=== PATIENT | female | born 1980 | race Two or more races ===

== ENCOUNTER 2017-11-15 00:10 | Emergency (ER) | payer MEDICAID ==
[~2017-11-15] VITALS: Ht 165.1 cm; Wt 93.0 kg
[~2017-11-15 00:10] MED LIST: BENADRYL25 MG ORAL; BENAZEPRIL HCL10 MG ORAL; BENAZEPRIL HCL20 MG ORAL; CIPROFLOXACIN500 M2 ORAL; GLIPIZIDE5 MG ORAL; HYDROCODON-ACE1 EA15 ORAL; IBUPROFEN600 MG PO; IMODIUM2 MG ORAL; METFORMIN HCL1000 M1 ORAL; METFORMIN HCL500 M1 ORAL; NORCO 10/3251 EA ORAL; NORCO 5-325 TA1 EACH ORAL; PRILOSEC20 MG ORAL; VALIUM5 MG PO
[2017-11-15] MEDS ORDERED: KEFLEX500 MG ORAL (00:44)
--- NOTE | 2017-11-15 00:44 | Emergency Room Report ---
History of Present Illness General Chief Complaint: Female Urogenital Problems Source: Patient Present Illness HPI This is a 37-year-old female with a history diabetes. She presents with chief complaint of dysuria, frequency and urgency. Had hematuria on and off. Now with lower back pain. No nausea vomiting. History of UTI in the past. No fever or chills. No nausea no vomiting. Allergies: Coded Allergies: ASPIRIN (Verified Allergy, Severe, ANAPHYLAXIS, 03/06/16) Uncoded Allergies: aspirin (Allergy, Mild, can't breathe, 05/17/13) Patient History Past Medical History: see triage record, old chart reviewed, DM Past Surgical History: other Pertinent Family History: none Social History: Denies: smoking Last Menstrual Period: 2 weeks ago Now: No : 3 Immunizations: other Reviewed Nursing Documentation: PMH: Agreed, PSxH: Agreed Nursing Documentation-PMH Hx Hypertension: Yes Hx Diabetes: Yes Hx Gastrointestinal Problems: Yes - Cholecystectomy Review of Systems Eye: Denies: eye pain, blurred vision ENT: Denies: ear pain, nose congestion, throat swelling Respiratory: Denies: cough, shortness of breath Cardiovascular: Denies: chest pain, palpitations Gastrointestinal: Denies: abdominal pain, diarrhea, nausea, vomiting Genitourinary: Reports: dysuria, frequency, hematuria, urgency Musculoskeletal: Denies: back pain, joint pain Skin: Denies: rash Neurological: Denies: headache, numbness Endocrine: Denies: increased thirst, increased urine Hematologic/Lymphatic: Denies: easy bruising All Other Systems: negative except mentioned in HPI Physical Exam Vital Signs Date Time Temp Pulse Resp B/P (MAP) Pulse Ox O2 Delivery O2 Flow Rate FiO2 11/15/17 00:13 98.4 100 18 129/79 98 vitals normal Sp02 EP Interpretation: reviewed, normal General Appearance: well appearing, no apparent distress, alert Head: normocephalic, atraumatic Eyes: bilateral eye PERRL, bilateral eye EOMI ENT: hearing grossly normal, normal pharynx Neck: full range of motion, supple, no meningismus Respiratory: chest non-tender, lungs clear, normal breath sounds Cardiovascular #1: regular rate, rhythm, no murmur Gastrointestinal: normal bowel sounds, non tender, no mass, no organomegaly, no bruit, non-distended Musculoskeletal: back normal, gait/station normal, normal range of motion Psychiatric: mood/affect normal Skin: warm/dry Medical Decision Making Diagnostic Impression: Primary Impression: UTI (urinary tract infection) Qualified Codes: N30.00 - Acute cystitis without hematuria ER Course Patient with symptoms consistent with UTI. No evidence of any sepsis or pyelonephritis. We'll discharge him. Last Vital Signs Date Time Temp Pulse Resp B/P (MAP) Pulse Ox O2 Delivery O2 Flow Rate FiO2 11/15/17 00:13 98.4 100 18 129/79 98 Status: improved Disposition: HOME, SELF-CARE Condition: Stable Scripts Cephalexin* (KEFLEX*) 500 Mg Capsule 500 MG ORAL TID, #21 CAP 0 Refills Prov: JAN CONTI M.D. 11/15/17 Patient Instructions: Urinary Tract Infection Additional Instructions: Followup with your DrAruna in 2-3 days. Return if symptom worsen. JAN CONTI M.D. Nov 15, 2017 00:44
[2017-11-15 00:45] VITALS: BP 129/79
[2017-11-15] MEDS ORDERED: Cephalexin 500mg cap ORAL ONE (00:45)
[2017-11-15 01:00] VITALS: BP 129/79
== END 2017-11-15 01:00 | disposition home or self-care (01) ==
LOC: EMR 00:28
DX: N39.0 Urinary tract infection, site not specified (principal); E11.9 Type 2 diabetes mellitus without complications; Z90.49 Acquired absence of other specified parts of digestive tract; Z88.6 Allergy status to analgesic agent
CPT/HCPCS: 87086; 87181; 99283

== ENCOUNTER 2018-02-11 22:26 | Emergency (ER) | payer MEDICAID ==
[~2018-02-11] VITALS: Ht 165.1 cm; Wt 90.7 kg
[~2018-02-11 22:26] MED LIST changes: +KEFLEX500 MG ORAL
[2018-02-11 22:35] VITALS: BP 142/88
[2018-02-11] MEDS ORDERED: DOXYCYCLINE MO100 MG ORAL (22:47)
[2018-02-11] MEDS ORDERED: BENADRYL25 MG ORAL (22:47)
--- NOTE | 2018-02-11 22:48 | Emergency Room Report ---
History of Present Illness General Chief Complaint: Skin Rash/Abscess Source: Patient Present Illness HPI Is a 37-year-old female with history diabetes. She presents with chief complaint of itching and rash to both hand. Now going up her arm to her face. Onset a couple days ago. Nothing out of the ordinary. Denies any fever chills. Denies any nausea vomiting. No sweating. No fever. Has not take any medicine for it. Allergies: Coded Allergies: ASPIRIN (Verified Allergy, Severe, ANAPHYLAXIS, 03/06/16) Uncoded Allergies: aspirin (Allergy, Mild, can't breathe, 05/17/13) Patient History Past Medical History: see triage record, old chart reviewed, DM Past Surgical History: other Pertinent Family History: none Last Menstrual Period: January Now: No Immunizations: other Reviewed Nursing Documentation: PMH: Agreed, PSxH: Agreed Nursing Documentation-PMH Hx Hypertension: Yes Hx Diabetes: Yes Hx Gastrointestinal Problems: Yes - Cholecystectomy Review of Systems Eye: Denies: eye pain, blurred vision ENT: Denies: ear pain, nose congestion, throat swelling Respiratory: Denies: cough, shortness of breath Cardiovascular: Denies: chest pain, palpitations Gastrointestinal: Denies: abdominal pain, diarrhea, nausea, vomiting Musculoskeletal: Denies: back pain, joint pain Skin: Reports: rash Neurological: Denies: headache, numbness Endocrine: Denies: increased thirst, increased urine Hematologic/Lymphatic: Denies: easy bruising All Other Systems: negative except mentioned in HPI Physical Exam Vital Signs Date Time Temp Pulse Resp B/P (MAP) Pulse Ox O2 Delivery O2 Flow Rate FiO2 02/11/18 22:28 98.0 76 18 149/89 98 Room Air 98.1 vitals with high blood pressure Sp02 EP Interpretation: reviewed, normal General Appearance: well appearing, no apparent distress, alert Head: normocephalic, atraumatic Eyes: bilateral eye PERRL, bilateral eye EOMI ENT: hearing grossly normal, normal pharynx Neck: full range of motion, supple, no meningismus Respiratory: chest non-tender, lungs clear, normal breath sounds Cardiovascular #1: regular rate, rhythm, no murmur Gastrointestinal: normal bowel sounds, non tender, no mass, no organomegaly, no bruit, non-distended Musculoskeletal: back normal, gait/station normal, normal range of motion Neurologic: alert, oriented x3 Psychiatric: mood/affect normal Skin: warm/dry, rash - Prickly rash on dorsum of both hands tracking up the forearm. Medical Decision Making Diagnostic Impression: Primary Impression: Rash and other nonspecific skin eruption ER Course Patient with a dermatitis. Could be allergic reaction versus cellulitis. We' ll go ahead and treat symptomatically and put on antibiotics. No evidence of necrotizing fasciitis, abscess or deep infection. Last Vital Signs Date Time Temp Pulse Resp B/P (MAP) Pulse Ox O2 Delivery O2 Flow Rate FiO2 02/11/18 22:28 98.0 76 18 149/89 98 Room Air 98.1 Status: unchanged Disposition: HOME, SELF-CARE Condition: Stable Scripts Doxycycline Monohydrate* (DOXYCYCLINE MONOHYDRATE*) 100 Mg Capsule 100 MG ORAL Q12H, #14 CAP 0 Refills Prov: JAN CONTI M.D. 02/11/18 Diphenhydramine Hcl* (BENADRYL*) 25 Mg Capsule 50 MG ORAL Q6H Y for Itching, #30 CAP Prov: JAN CONTI M.D. 02/11/18 Referrals: NON PHYSICIAN (PCP) Patient Instructions: Rash Additional Instructions: Follow-up with your DrAruna in 7 days. Return if symptom worsen. JAN CONTI M.D. Feb 11, 2018 22:47
[2018-02-11 22:56] VITALS: BP 142/88
== END 2018-02-11 22:56 | disposition home or self-care (01) ==
LOC: EMR 22:39
DX: R21 Rash and other nonspecific skin eruption (principal); E11.9 Type 2 diabetes mellitus without complications; I10 Essential (primary) hypertension; Z90.49 Acquired absence of other specified parts of digestive tract; Z88.6 Allergy status to analgesic agent
CPT/HCPCS: 99284

== ENCOUNTER 2018-07-19 18:02 | Emergency (ER) | payer MEDICAID ==
[~2018-07-19] VITALS: Ht 162.6 cm; Wt 93.0 kg
[~2018-07-19 18:02] MED LIST changes: +DOXYCYCLINE MO100 MG ORAL
[2018-07-19] MEDS ORDERED: Lidocaine 1% Plain 30 ml INJ ONE (18:30)
[2018-07-19] MEDS ORDERED: Bacitracin Oint UD TOPIC ONE (18:30)
--- NOTE | 2018-07-19 18:37 | Emergency Room Report ---
History of Present Illness General Chief Complaint: General Complaint Source: Patient Present Illness HPI 38-year-old female patient presents ER complaining of "I have an ingrown toenail ". Reports has been present for the past few weeks but pain became much more increased today. Reports left big toenail ingrown is ingrown. reports has had ingrown toenail procedure performed twice previously. Reports has been attempting to treat at home over the past few weeks. Reports history of similar symptoms in the past. States has not had for "a while".. Denies fever , chest, shortness of breath. Denies hx of injury or trauma. Reports hx of diabetes. Allergies: Coded Allergies: ASPIRIN (Verified Allergy, Severe, ANAPHYLAXIS, 03/06/16) Uncoded Allergies: aspirin (Allergy, Mild, can't breathe, 05/17/13) Patient History Past Medical History: see triage record Last Menstrual Period: 07/11/2018 Reviewed Nursing Documentation: PMH: Agreed; PSxH: Agreed Nursing Documentation-PMH Past Medical History: No History, Except For Hx Hypertension: Yes Hx Diabetes: Yes Hx Gastrointestinal Problems: Yes - Cholecystectomy Review of Systems All Other Systems: negative except mentioned in HPI Physical Exam Vital Signs Date Time Temp Pulse Resp B/P (MAP) Pulse Ox O2 Delivery O2 Flow Rate FiO2 07/19/18 18:24 98.3 85 14 138/85 97 Room Air 98.2 Sp02 EP Interpretation: reviewed, normal General Appearance: well appearing, no apparent distress, alert, GCS 15, non- toxic Head: normocephalic, atraumatic Eyes: bilateral eye normal inspection, bilateral eye PERRL ENT: hearing grossly normal, normal pharynx, no angioedema, normal voice, uvula midline, moist mucus membranes Neck: full range of motion Respiratory: lungs clear, normal breath sounds, no rhonchi, no respiratory distress, no accessory muscle use, no wheezing, speaking full sentences Cardiovascular #1: regular rate, rhythm, no edema Musculoskeletal: back normal, digits/nails normal, gait/station normal, normal range of motion, non-tender Neurologic: alert, oriented x3, responsive, motor strength/tone normal, sensory intact Psychiatric: mood/affect normal Skin: other - left big toe: medial border obvuious ingrown toenail, mild erythema, TTP Procedures Additional Procedure Procedure Narrative Ingrown toenail. Obtained verbal and written consent for procedure. Toenail and surrounding areas cleaned and prepped with Betadine solution and normal saline. Digital block performed using 5ml 1% lidocaine without epi. After achieving appropriate anesthesia, nail freed from nail bed with blunt dissection using hemostats and dissected section removed after cutting with scissors. Direct pressure used to achieve hemostasis. Toe was then flushed with copious amounts of saline, bacitracin, xeroform, gauze and tape were applied. Patient tolerated procedure well without complication WBAT with post-op shoe. Will discharge home wtih abx and pain medication. Medical Decision Making PA Attestation Dr. Hooper is my supervising Physician whom patient management has been discussed with. Diagnostic Impression: Primary Impression: Ingrown left big toenail ER Course Pt. presents to the ED c/o toe pain. Ddx considered but are not limited to ingrown toenail, nail avulsion, paronychia , felon, cellulitis, tinea magnum. Vital signs: are WNL, pt. is afebrile ER COURSE: Physical exam shows: ingrown toenail noted with superimposed infection of left big toenail. Left big toenail appears slightly misshapen, may be due to treatment at home or previous toenail procedures. Informed patient she needs podiatry follow-up. Provided with contact information. See procedure note for partial toe nail removal. Informed patient can wash it tomorrow, but do not soak in water. Apply topical abx and redress wound. Do not wear close toed shoes. Followup with stopper maker helper/PCP provided with contact information for stopper maker helper, contact to schedule appt. Wound check in 2-3 days. ER precautions given. provided with contact information for free and low-cost healthcare clinics if unable to be seen. DISCHARGE: Rx provided for Keflex Rx provided for Ciprofloxacin to cover for pseudomonas due to history of diabetes. Rx provided for bacitracin Rx provided for Tylenol #3, CURES reviewed. SE drowsiness, do not take prior to drinking, driving, operating heavy machinery. At this time pt is stable for d/c to home. Patient is resting comfortably, in no acute distress, nontoxic appearing, talking without difficulty. Patient to take medications as instructed Will provide with patient care instructions and any necessary prescriptions. Care plan and follow-up instructions provided. Patient instructed to follow-up with primary care provider in 3 - 5 days. Patient questions asked and answered. Patient reports understanding and agreement to treatment plan. ER precautions given. Patient instructed to return to ER immediately for any new or worsening of symptoms including but not limited to increasing SOB, persistent fever, chest pain, intractable vomiting. - Please note that this Emergency Department Report was dictated using [employer] window tinter technology software, occasionally this can lead to erroneous entry secondary to interpretation by the dictation equipment. Last Vital Signs Date Time Temp Pulse Resp B/P (MAP) Pulse Ox O2 Delivery O2 Flow Rate FiO2 07/19/18 18:24 98.3 85 14 138/85 97 Room Air 98.2 Disposition: HOME, SELF-CARE Condition: Stable Scripts Acetaminophen With Codeine (T#3) (TYLENOL #3 TAB*) Y Tab 1 TAB ORAL Q4H PRN for For Pain, #12 TAB Prov: Kwesi Khan 07/19/18 Ciprofloxacin* (CIPRO*) 500 Mg Tablet 500 MG PO BID, #14 TAB Prov: Kwesi Khan 07/19/18 Cephalexin* (KEFLEX*) 500 Mg Capsule 500 MG ORAL EVERY 12 HOURS, #14 CAP 0 Refills Prov: Kwesi Khan 07/19/18 Bacitracin/Polymyxin B Sulfate (BACITRACIN-POLYMYXIN OINTMENT) 28.35 Gm Oint...g. 1 APPLIC TP BID, #28 GM Prov: Kwesi Khan 07/19/18 Patient Instructions: Ingrown Toenail Additional Instructions: Call to schedule followup appointment with stopper maker helper.Needs follow-up in next 2- 4 days. Followup with primary care provider in 3 -5 days for wound check. No closed toe shoes. Keep wound clean and dry. Take medications as directed. Patient questions asked and answered. ER precautions given, patient instructed to return to ER immediately for any new or worsening of symptoms. Kwesi Khan Jul 19, 2018 18:37
[2018-07-19 18:49] VITALS: BP 138/85
[2018-07-19] MEDS ORDERED: CEPHALEXIN500 MG ORAL (20:52)
[2018-07-19] MEDS ORDERED: ACETAMINOPHEN-1 EAC1 ORAL (20:52)
[2018-07-19] MEDS ORDERED: CIPRO500 MG PO (20:52)
[2018-07-19] MEDS ORDERED: BACITRACIN-P28.35 GM TP (20:52)
[2018-07-19 21:15] VITALS: BP 137/86
== END 2018-07-19 21:20 | disposition home or self-care (01) ==
LOC: EMR 19:46
DX: L60.0 Ingrowing nail (principal); E11.9 Type 2 diabetes mellitus without complications; I10 Essential (primary) hypertension; Z90.49 Acquired absence of other specified parts of digestive tract; Z88.6 Allergy status to analgesic agent
CPT/HCPCS: 11765; 99283; J2001; Z7502